=== PATIENT | female | born 1995 | race Caucasian/White ===

== ENCOUNTER → 2020-12-21 | Outpatient (CLI) | payer OTHER ==
--- NOTE | 2020-12-21 10:35 | REP ---
INDICATION: PAIN COMPARISON: None. TECHNIQUE: AP, lateral, bilateral oblique views right foot. FINDINGS: The osseous structures and joint spaces are intact and normal. There is no evidence for acute fracture or dislocation. Surrounding soft tissues are unremarkable. No subcutaneous emphysema or radiodense foreign body. IMPRESSION: Normal age-appropriate examination. No acute fracture or dislocation. <Electronically signed by Brown Stratton > 12/21/20 [id number]
== END ==
LOC: M WUC 10:18
PROVIDERS: ATTEND Nurse Practitioner Family
DX: M79.671 Pain in right foot (principal)

== ENCOUNTER → 2021-02-18 | Outpatient (CLI) | payer OTHER ==
--- NOTE | 2021-02-18 16:05 | REP ---
INDICATION: PAIN. COMPARISON: None. TECHNIQUE: Four views with under penetrated lateral view limiting the exam FINDINGS: The joint spaces are symmetric and relatively well maintained. There is no evidence of acute fracture or destructive osseous lesion. IMPRESSION: Negative limited exam. <Electronically signed by Patrick Wolfe > 02/18/21 [id number]
== END ==
LOC: M WUC 15:38
PROVIDERS: ATTEND Physician Assistant
DX: M79.641 Pain in right hand (principal)